=== PATIENT | male | born 1990 | race Caucasian/White ===

== ENCOUNTER 2021-03-09 09:47 | Outpatient (CLI) | payer BC, SELFPAY ==
--- NOTE | ~2021-03-09 | XR_ITS ---
EXAMINATION: XR thoracic spine 3V DATE: 03/09/2021 10:49 INDICATION: Back pain TECHNIQUE: AP, lateral and lateral swimmer's views of the thoracic spine were obtained. COMPARISON: None. FINDINGS: There is fracture, dislocation, or subluxation. The vertebral body heights, alignment, and intervertebral disc spaces are normal. The visualized soft tissues are unremarkable. IMPRESSION: 1. Unremarkable thoracic spine. Reviewed, dictated and finalized at location B.
--- NOTE | ~2021-03-09 | XR_ITS ---
EXAMINATION:XR_[id number]_CR DATE: 03/09/2021 10:49 INDICATION: Neck pain TECHNIQUE: Lateral views of the cervical spine in flexion and extension are obtained. COMPARISON: None FINDINGS: Alignment is normal. No laxity is present with flexion or extension. The odontoid appears i ntact. No fracture is identified. Vertebral body heights and disk spaces are normal. Prevertebral sof t tissues are normal. IMPRESSION: 1. Unremarkable cervical spine on limited lateral evaluation. Reviewed, dictated and finalized at location B.
== END 2021-03-09 09:48 ==
PROVIDERS: Visit Provider Nurse Practitioner Adult Health
DX: M54.2 Cervicalgia (principal); M54.6 Pain in thoracic spine
CPT/HCPCS: 72040; 72072